=== PATIENT | male | born 1955 | race Two or more races ===

== ENCOUNTER 2018-10-11 13:17 | Emergency (ER) | payer OTHER ==
[~2018-10-11] VITALS: Ht 167.6 cm; Wt 73.0 kg
[2018-10-11] MEDS ORDERED: TOPROL XL100 M1 (14:02)
[2018-10-11] MEDS ORDERED: COZAAR100 MG (14:03)
[2018-10-11] MEDS ORDERED: PREVACID30 MG (14:03)
[2018-10-11] MEDS ORDERED: NORVASC2.5 M1 (14:03)
[2018-10-11] MEDS ORDERED: VYTORIN 10-101 EACH (14:04)
== END 2018-10-11 15:43 | disposition home or self-care (01) ==
LOC: ER 13:17
DX: M94.0 Chondrocostal junction syndrome [Tietze] (principal)

== ENCOUNTER 2018-12-27 14:00 | Emergency (ER) | payer OTHER ==
[~2018-12-27] VITALS: Ht 167.6 cm; Wt 72.6 kg
[~2018-12-27 14:00] MED LIST: COZAAR100 MG; NORVASC2.5 M1; PREVACID30 MG; TOPROL XL100 M1; VYTORIN 10-101 EACH
== END 2018-12-27 15:00 | disposition home or self-care (01) ==
LOC: ER 14:00
DX: R19.7 Diarrhea, unspecified (principal)

== ENCOUNTER 2020-04-09 13:56 | Emergency (ER) | payer OTHER ==
[~2020-04-09] VITALS: Ht 167.6 cm; Wt 71.7 kg
== END 2020-04-09 17:25 | disposition home or self-care (01) ==
LOC: ER 13:56
DX: S60.031A Contusion of right middle finger without damage to nail, initial encounter (principal); S60.021A Contusion of right index finger without damage to nail, initial encounter; W23.0XXA Caught, crushed, jammed, or pinched between moving objects, initial encounter; Y93.89 Activity, other specified; Y92.098 Other place in other non-institutional residence as the place of occurrence of the external cause; Y99.8 Other external cause status

== ENCOUNTER 2020-06-15 19:50 | Emergency (ER) | payer OTHER ==
[~2020-06-15] VITALS: Ht 165.1 cm; Wt 74.8 kg
== END 2020-06-16 00:34 | disposition home or self-care (01) ==
LOC: ER 19:50
DX: M54.5 Low back pain (principal)

== ENCOUNTER 2021-12-31 07:29 | Emergency (ER) | payer OTHER ==
[~2021-12-31] VITALS: Ht 152.4 cm; Wt 71.2 kg
[2021-12-31] MEDS ORDERED: SIMVASTATIN20 MG PO (07:58)
[2021-12-31] MEDS ORDERED: EZETIMIBE10 MG PO (07:59)
== END 2021-12-31 13:35 | disposition home or self-care (01) ==
LOC: ER 07:29
DX: R10.84 Generalized abdominal pain (principal); Z88.0 Allergy status to penicillin

== ENCOUNTER 2022-02-10 19:49 | Emergency (ER) | payer OTHER ==
[~2022-02-10] VITALS: Ht 167.6 cm; Wt 71.7 kg
[~2022-02-10 19:49] MED LIST changes: +EZETIMIBE10 MG PO; +SIMVASTATIN20 MG PO
== END 2022-02-10 21:51 | disposition home or self-care (01) ==
LOC: ER 19:49
DX: M54.9 Dorsalgia, unspecified (principal); Z88.0 Allergy status to penicillin

== ENCOUNTER 2022-12-29 07:40 | Emergency (ER) | payer OTHER ==
[~2022-12-29] VITALS: Ht 167.6 cm; Wt 70.8 kg
[2022-12-29] MEDS ORDERED: ADCIRCA20 MG (08:18)
[2022-12-29] MEDS ORDERED: PANTOPRAZOLE SO40 M2 PO (08:19)
== END 2022-12-29 16:09 | disposition home or self-care (01) ==
LOC: ER 07:40
PROVIDERS: General Practice
DX: K52.9 Noninfective gastroenteritis and colitis, unspecified (principal); Z20.822 Contact with and (suspected) exposure to COVID-19

== ENCOUNTER 2023-05-03 17:31 | Emergency (ER) | payer OTHER ==
[~2023-05-03] VITALS: Ht 167.6 cm; Wt 68.0 kg
[~2023-05-03 17:31] MED LIST changes: +ADCIRCA20 MG; +PANTOPRAZOLE SO40 M2 PO
== END 2023-05-03 20:40 | disposition home or self-care (01) ==
LOC: ER 17:31
DX: S21.121A Laceration with foreign body of right front wall of thorax without penetration into thoracic cavity, initial encounter (principal); V19.9XXA Pedal cyclist (driver) (passenger) injured in unspecified traffic accident, initial encounter; Y93.89 Activity, other specified; Y92.413 State road as the place of occurrence of the external cause; Z88.0 Allergy status to penicillin

== ENCOUNTER 2023-05-19 11:48 | Emergency (ER) | payer OTHER ==
[~2023-05-19] VITALS: Ht 167.6 cm; Wt 68.0 kg
[2023-05-19 12:56] LABS: URINE APPEARANCE Clear; URINE BILIRRUBIN Negative (NEGATIVE); URINE BLOOD Negative; URINE COLOR Yellow; URINE GLUCOSE Negative (NEGATIVE); URINE LEUKOCYTE Negative; URINE NITRATE Negative; URINE PROTEIN Negative (NEGATIVE)
[2023-05-19 12:58] LABS: HEMATOCRIT 36.1 % (39.0-48.0); HEMOGLOBIN 12.2 g/dL (13-16.00); MEAN CELL VOLUME 85.3 fL (80.0-100.00); MEAN CORPUSCULAR HEMOGLOBIN 28.9 pg (27.00-32.0); MEAN CORPUSCULAR HGB CONC 33.9 g/dl (32.0-36.0); RED BLOOD COUNT 4.24 M/uL (4.00-6.00); RED CELL DISTRIBUTION WIDTH 18.4 % (11.5-14.5)
[2023-05-19 12:58] LABS: URINE BACTERIA 8.8 uL (0.0-1933); URINE RBC 4.3 uL (0.0-20.8)
[2023-05-19 12:59] LABS: URINE EPITHELIAL CELLS 0.7 uL (0.0-38.8); URINE WBC 1.6 uL (0.0-23.2)
[2023-05-19 13:05] LABS: PLATELET COUNT 91 K/uL (150-450)
[2023-05-19 13:45] LABS: CALCIUM 8.8 mg/dL (8.5-10.1); CREATININE SERUM 1.06 mg/dL (0.70-1.30); GFR 70.11; POTASSIUM 4.3 mEq/L (3.5-5.1)
== END 2023-05-19 15:37 | disposition home or self-care (01) ==
LOC: ER 11:48
PROVIDERS: Emergency Medicine
DX: R42 Dizziness and giddiness (principal); M50.30 Other cervical disc degeneration, unspecified cervical region; Z88.0 Allergy status to penicillin; I10 Essential (primary) hypertension

== ENCOUNTER 2023-06-21 14:31 | Emergency (ER) | payer OTHER ==
[~2023-06-21] VITALS: Ht 167.6 cm; Wt 68.0 kg
== END 2023-06-21 19:50 | disposition home or self-care (01) ==
LOC: ER 14:31
DX: B34.9 Viral infection, unspecified (principal); I10 Essential (primary) hypertension; Z88.0 Allergy status to penicillin; Z20.822 Contact with and (suspected) exposure to COVID-19